=== PATIENT | female | born 1940 | race Caucasian/White ===

== ENCOUNTER 2019-07-05 08:11 | Outpatient (CLI) | payer OTHER | END 2019-07-05 08:18 | disposition home or self-care (01) | LOC: RX STUDY 08:11 | DX: D12.6 Benign neoplasm of colon, unspecified (principal); R19.07 Generalized intra-abdominal and pelvic swelling, mass and lump; K57.30 Diverticulosis of large intestine without perforation or abscess without bleeding; K21.9 Gastro-esophageal reflux disease without esophagitis ==